=== PATIENT | male | born 1980 | race Caucasian/White ===

== ENCOUNTER 2016-09-13 07:44 | Observation (INO) | payer BC ==
[2016-09-13 07:57] LABS: BASO % 0.4 % (0-6); EOS % 2.3 % (0-6); GRAN % 57.8 % (47-80); HEMATOCRIT 49.8 % (42.0-52.0); HEMOGLOBIN 16.8 gm/dl (14.0-18.0); MEAN CELL VOLUME 83.8 fl (81-97); MEAN CORPUSCULAR HGB CONC 33.7 g/dl (32-36); MEAN PLATELET VOLUME 8.6 fl (7.4-10.4); MONO % 8.5 % (0-9); PLATELET COUNT 386 K/uL (130-400); RED BLOOD COUNT 5.94 M/uL (4.40-5.70); RED CELL DISTRIBUTION WIDTH 14.5 % (11.5-14.5)
[2016-09-13 08:03] LABS: MEAN CORPUSCULAR HEMOGLOBIN 28.2 pg (27-33)
--- NOTE | 2016-09-13 08:05 | Emergency Department Record ---
History of Present Illness - General Stated Complaint: CHEST PAIN Time Seen by Provider: 09/13/16 07:45 Source: Patient, EMS Mode of Arrival: EMS Limitations: No limitations - History of Present Illness Initial Comments: 36 yo male presents with chest pain. The onset was at 4:30am upon waking. The patient went to work and the discomfort persisted. The pain is a tightness like sensation. It is somewhat worse with inspiration or stretching. No prior history of CAD. He has not had recent similar episodes of chest pain. No leg swelling or edema. He was given Aspirin and Nitro prior arrival. No immediate family history of CAD or DVT/PE. He does not have HTN, DM, CAD or elevated cholesterol. He did recently travel by car to [facility]. No calf pain or swelling. MD Complaint: Chest pain -: Hour(s) (4) Onset: Awoke with symptoms Pain Location: Left chest Pain Radiation: LUE Severity: Moderate Consistency: Constant Improves With: Rest Worsens With: Inspiration Anginal Symptoms: Dyspnea Treatments Prior to Arrival: Aspirin, Nitroglycerin - Related Data Previous Rx's Medication Instructions Recorded Ibuprofen [Motrin 600Mg] 600 mg PO Q6H #30 tablet 09/13/16 Allergies Allergy/AdvReac Type Severity Reaction Status Date / Time No Known Drug Allergies Allergy Verified 09/13/16 07:48 Review of Systems Constitutional: Denies: Chills, Fever, Weakness Eyes: Denies: Eye discharge, Eye pain ENT: Denies: Congestion, Ear pain, Epistaxis, Throat pain Respiratory: Reports: Dyspnea. Denies: Cough, Hemoptysis, Stridor, Wheezes Cardiovascular: Reports: Chest pain. Denies: Palpitations, Syncope Endocrine: Denies: Fatigue Gastrointestinal: Denies: Abdominal pain, Diarrhea, Nausea, Vomiting Genitourinary: Denies: Dysuria, Frequency, Hematuria Musculoskeletal: Denies: Arthralgia, Back pain, Joint swelling, Myalgia, Neck pain Skin: Denies: Bruising, Change in color, Rash Neurological: Denies: Headache, Numbness, Weakness Psychiatric: Denies: Anxiety Hematological/Lymphatic: Denies: Blood Clots, Easy bleeding, Easy bruising, Swollen glands Physical Exam - General General Appearance: Alert, Oriented x3, Cooperative, No acute distress Limitations: No limitations - Head Head exam: Normal inspection - Eye Eye exam: Normal appearance. negative: Conjunctival injection, Periorbital swelling - ENT ENT exam: Normal exam, Mucous membranes moist Ear exam: Normal external inspection Nasal Exam: Normal inspection Mouth exam: Normal external inspection Teeth exam: Normal inspection - Neck Neck exam: Normal inspection, Full ROM. negative: Tenderness - Respiratory Respiratory exam: Normal lung sounds bilaterally. negative: Accessory muscle use, Respiratory distress, Rhonchi, Stridor, Wheezes - Cardiovascular Cardiovascular Exam: Regular rate, Normal rhythm, Normal heart sounds. negative : Diastolic murmur, Systolic murmur, Tachycardia Peripheral Pulses: 2+: Radial (R), Radial (L) - GI/Abdominal GI/Abdominal exam: Soft. negative: Tenderness - Rectal Rectal exam: negative: Deferred - exam: negative: Deferred - Extremities Extremities exam: Normal inspection, Full ROM, Normal capillary refill. negative: Pedal edema, Tenderness - Back Back exam: Denies: CVA tenderness (R), CVA tenderness (L), Paraspinal tenderness , Rash noted, Tenderness, Vertebral tenderness - Neurological Neurological exam: Alert, Normal gait, Oriented X3 - Psychiatric Psychiatric exam: Normal affect, Normal mood. negative: Agitated, Anxious - Skin Skin exam: Dry, Intact, Normal color, Warm. negative: Cyanosis, Diaphoretic, Erythema Course - Reevaluation(s) Reevaluation #1: EKG 07:43 NSR, rate 94, intervals normal, axis normal, ST normal. Normal EKG The patient has a PERC score of 0. 09/13/16 07:51 Reevaluation #2: The labs were reviewed. No acute changes on the Troponin or D-dimer. On the CBC WBC count is 17. On the CMP the ALT is 78. 09/13/16 08:27 09/13/16 09:38 On recheck the patient is resting comfortably He states his pain is gone. 09/13/16 09:[address] Balderrama of Cardiology He will be at [facility] this afternoon He recommended serial enzymes I discussed the case with Dr Castillo He recommended repeat troponin at noon He will place patient as an OBV with cardiology consultation The patient was informed and agrees with the plan Medical Decision Making - Lab Data Result diagrams: 09/13/16 07:30 09/13/16 07:30 Disposition Disposition: Admit Clinical Impression: Chest pain Qualifiers: Chest pain type: unspecified Qualified Code(s): R07.9 - Chest pain, unspecified Disposition: Still a Patient at [facility] Decision to Admit: Admit from ER Decision to Admit Date: 09/13/16 Decision to Admit Time: 09:45 Condition: (1) Good Time of Disposition: 09:49 Quality - Quality Measures Quality Measures: N/A - Blood Pressure Screening View Details: Yes Blood Pressure Classification: Pre-Hypertensive BP Reading Systolic Measurement: 133 Diastolic Measurement: 84 Screening for High Blood Pressure: < Pre-Hypertensive BP, F/U Documented > [ [id number]] Pre-Hypertensive Follow-up Interventions: Referral to alternative/primary care provider.
[2016-09-13 08:06] LABS: ALB/GLOB RATIO 1.7 (1.1-1.8); ALBUMIN 4.9 gm/dL (3.5-5.0); ALKALINE PHOSPHATASE 95 U/L (38-126); ALT/SGPT 78 U/L (21-72); ANION GAP 11.8 (7-16); AST/SGOT 47 U/L (17-59); BILIRUBIN,TOTAL 0.79 mg/dL (0.2-1.3); BLOOD UREA NITROGEN 13 mg/dL (9-20); CARBON DIOXIDE 23.2 mmol/L (22-30); CREATINE PHOSPHOKINASE 119 U/L (55-170); CREATININE 0.9 mg/dL (0.66-1.25); EST GLOMERULAR FILTRATION RATE > 60 ml/min; GLUCOSE,RANDOM 105 mg/dL (70-110); TOTAL PROTEIN 7.8 gm/dL (6.3-8.2)
[2016-09-13] MEDS ORDERED: KETOROLAC 30 MG/ML VIAL IVP ONE (08:06)
[2016-09-13 08:18] LABS: CKMB 0.7 ug/L (0-6)
[2016-09-13 08:19] LABS: TROPONIN I < 0.012 ng/mL (0.00-0.034)
[2016-09-13 08:22] LABS: INR 0.94; PROTHROMBIN TIME (PATIENT) 10.1 SECONDS (9.5-12.1)
[2016-09-13 08:24] LABS: D-DIMER < 0.19 mg/L FEU (0-0.59)
[2016-09-13] MEDS ORDERED: ACETAMINOPHEN 500 MG TABLET PO PRN (10:25)
--- NOTE | 2016-09-13 13:06 | RADIOLOGY REPORT ---
EXAM: CHEST, TWO VIEWS HISTORY: ACUTE MID CHEST PAIN. TECHNIQUE: Two views of the chest were obtained. Comparison: None. FINDINGS: The lungs are clear. The cardiac silhouette, diaphragms, and osseous structure are unremarkable for age. IMPRESSION: NEGATIVE CHEST EXAMINATION. JOB NUMBER: [id number] MTDD
--- NOTE | 2016-09-13 15:43 | Discharge Note ---
VTE H&P Assessment - Risk for VTE Risk for VTE: Yes Risk Level: Very Low Risk Assessment Date: 09/13/16 Risk Assessment Time: 12:30 VTE Orders Placed or Will Be Placed: No VTE Reason for No Prophylaxis: Not Indicated (not in hospital long enough) Discharge Medications - Discharge Medications Prescriptions: Ibuprofen [Motrin 600Mg] 600 mg PO Q6H #30 tablet Home Medications: Ambulatory Orders Ibuprofen [Motrin 600Mg] 600 mg PO Q6H #30 tablet 09/13/16 [Last Taken Unknown] Discharge Note - Date Date of Discharge Note: 09/13/16 Disposition: Home, Self-Care Condition: (1) Good Additional Instructions: follow up with Dr Ryan White one week and he can set up a stress test. use motrin 600 mg four times a day heat to chest twice a day Forms: Patient Portal Access
--- NOTE | 2016-09-14 11:00 | History and Physical Report ---
CHIEF COMPLAINT: Left-sided chest pain, sharp in nature, stabbing. Deep breaths make it worse. Twisting and turning of the shoulders makes it worse. The patient was working on planking and keshawn yesterday, 8-foot boards from making a table. Stretching and turning and strained himself. The patient was seen in the emergency department by Dr. Sheppard and admitted to the hospital for serial cardiac enzymes and cardiology consult. PAST MEDICAL HISTORY: Negative. PAST SURGICAL HISTORY: Negative. MEDICATIONS: None. ALLERGIES: No known allergies. FAMILY PSYCHOSOCIAL HISTORY: The mother and father both had heart disease in their 40s. REVIEW OF SYSTEMS: HEENT: No upper respiratory infection symptoms, cough, cold, or congestion. Cardiovascular: See Chief Complaint. He has sharp chest pain reproducible with twisting and turning the shoulders and also with deep inspiration. D-dimer in the ER was negative. Respiratory: No cough, cold, or congestion. Denies being short of breath. Gastrointestinal: No nausea, vomiting, diarrhea, black stools, or bloody stools. Genitourinary: No dysuria, hematuria, or frequency or burning on urination. Musculoskeletal: No joint or bone abnormalities. See Chief Complaint though. He has pain on palpation of the ribs on the left side. Neurological: No CVA, paralysis, or paresthesias. Endocrine: No diabetes or thyroid disease. Integument: No rash, ulcerative change in moles, or yellow skin. PHYSICAL EXAMINATION: VITAL SIGNS: Height 5 feet 8 inches, weight 190 pounds. Temperature 98.3, pulse 91, blood pressure 142/98, respiratory rate 16, pulse ox 98% on 2L. HEENT: Pupils are equal, round, and reactive to light and accommodation. Extraocular muscles intact. Throat is clear. Nose is clear. Tympanic membranes are gillette. NECK: Supple. No jugular venous distention or hepatojugular reflux. No carotid bruits. Thyroid is smooth. CARDIOVASCULAR: Regular rate and rhythm without murmurs, clicks, rubs, or gallops. RESPIRATORY: Clear to auscultation and percussion. He smokes cigarettes, a pack a day. I recommended he stop smoking. ABDOMEN: Soft, nontender. No hepatosplenomegaly. No masses. No tenderness. Bowel sounds are active. No bruits. EXTREMITIES: No pitting edema. No cyanosis. No clubbing. Full range of motion. Peripheral pulses good. BREASTS: Normal male breasts. RECTAL. Deferred. GENITALIA: Deferred. NEUROLOGIC: Cranial nerves II-XII intact. No gross defects. Sensation normal. Strength normal. Deep tendon reflexes equal bilaterally. Babinski negative. MENTAL STATUS: Alert and oriented x3. IMPRESSION: 1. Chest pain. 2. Anterior chest wall syndrome. 3. Strain of chest from lifting boards yesterday. PLAN: Cardiology consult. Serial cardiac enzymes. Two time points were negative. The EKG is no acute changes seen. MTDD
--- NOTE | 2016-09-14 11:00 | Medical Records Consult ---
DATE OF CONSULTATION: 09/13/2016 The patient is a 36-year-old gentleman, smoker, who had onset of chest pain this morning when he woke up. He went to work. Pain seemed to be worse. It is described as a sharp feeling in the center of his chest, worse with deep breathing and moving around. He told his boss and he was sent to the Emergency Room. Initial EKG is normal. Enzymes are normal. He was admitted for observation. Subsequent EKGs normal. Repeat troponins are reported as being normal since admission. His past history is negative for previous heart disease. He denies any history of hypertension, known dyslipidemia. He takes no prescription medications. He does smoke. See admitting history for rest of his past medical history, etc. PHYSICAL EXAMINATION: VITAL SIGNS: Per nurse's notes reviewed and confirmed. GENERAL: A white male, sitting in bed, smiling. No acute distress. HEAD, EYES, EARS, NOSE, THROAT: Normocephalic. Atraumatic. NECK: Supple. No bruits. CHEST: Reveals occasional wheeze. CARDIOVASCULAR: Regular. No lifts or heaves are noted. There is mild left parasternal tenderness with reproduction of his pain. ABDOMEN: Soft. EXTREMITIES: Skin is warm and dry. Pulses are intact. IMPRESSION: Noncardiac chest pain. PLAN: The patient can be discharged. Recommend [id number] Advil on a p.r.n. basis. He is interested in having a stress test. We will give him the office number for [place] office, since it is closer for him, and he can schedule a treadmill test as an outpatient. I placed no restrictions on him at this time. EMMANUELLE
--- NOTE | 2016-09-14 11:10 | Discharge Summary ---
DATE OF DISCHARGE: 09/13/2016 PRIMARY CARE PHYSICIAN: Ryan White DO DISCHARGE DIAGNOSES: 1. Chest pain. 2. Anterior chest wall syndrome. 3. Strain of thoracic ribs. ATTENDING PHYSICIAN: Vasu Castillo DO REASON FOR HOSPITALIZATION: Chest pain this morning, sharp chest pain in the left side of his chest, worse with a deep breath, also worse with turning and twisting of his shoulders. Seen by Dr. Sheppard in the ER and admitted to the hospital for serial cardiac enzymes, serial EKGs, and a cardiac evaluation. SIGNIFICANT FINDINGS: Cardiac enzymes x 2 were negative. EKG: No acute changes. LABORATORY: WBC was 17,000. Hemoglobin was 16.8. D-dimer was negative. CK-MB was 0.7. Troponin I was 0.012 x 2, four hours apart. CONSULTATION: Cardiology consult with Dr. Balderrama. He felt it was not acute chest pain, most likely anterior chest wall syndrome. He recommended following up with the family doctor in [place], and a stress test screen set up through the family doctor if necessary. THERAPY PROVIDED: Observation, cardiac monitoring. HOSPITAL COURSE: He has improved. CONDITION ON DISCHARGE: Much improved. DISCHARGE INSTRUCTIONS: Follow up with Dr. Ryan White in 1 week. Stop smoking. Recommended to use Motrin [id number] 600 mg every 6 hours. Heat to his chest. CC: Ryan White DO [facility]
== END 2016-09-13 16:50 | disposition home or self-care (01) ==
LOC: ER 07:44 → MEDSURG 10:18
PROVIDERS: ADMIT Emergency Medicine; ATTEND Emergency Medicine
DX: R07.89 Other chest pain (principal); S29.012A Strain of muscle and tendon of back wall of thorax, initial encounter; X50.0XXA Overexertion from strenuous movement or load, initial encounter; F17.200 Nicotine dependence, unspecified, uncomplicated
CPT/HCPCS: 71020; 80053; 82550; 82553; 84484; 85025; 85379; 85610; 85730; 93005; 93010; 96374; 99236; 99285; J1885